=== PATIENT | female | born 1995 | race Caucasian/White ===

== ENCOUNTER → 2016-03-16 | Outpatient (CLI) | payer OTHER ==
[~2016-03-16] MED LIST: GEODON 20 MG20 MG PO; GLUCOPHAGE500 MG/TAB; KLONOPIN WAF0.125 MG PO; MELATONIN0.3 MG PO; MIRTAZAPINE7.5 MG PO
== END ==
LOC: BHSO 11:01
DX: F31.2 Bipolar disorder, current episode manic severe with psychotic features (principal)

== ENCOUNTER → 2016-03-23 | Outpatient (CLI) | payer OTHER | LOC: BHSO 10:48 | DX: F31.2 Bipolar disorder, current episode manic severe with psychotic features (principal) ==

== ENCOUNTER → 2016-04-02 | Outpatient (CLI) | payer OTHER | LOC: BHSO 14:51 | DX: F31.81 Bipolar II disorder (principal) ==

== ENCOUNTER → 2016-04-06 | Outpatient (CLI) | payer OTHER | LOC: BHSO 10:20 | DX: F31.2 Bipolar disorder, current episode manic severe with psychotic features (principal) ==